=== PATIENT | male | born 1955 | race Hispanic/Latino ===

== ENCOUNTER 2017-03-23 13:47 | Inpatient (IN) | payer MEDICAID, SELFPAY ==
[2017-03-23 14:13] LABS: Bilirubin Negative (Negative); Blood, Urine Small (Negative); Glucose, Urine (Dipstick) 250 mg/dL (Negative); Ketone, Urine Negative (Negative); Nitrite Negative (Negative); Protein, Urine (Dipstick) > or equal to 300 mg/dL (Neg-Trace); Urobilinogen 0.2 mg/dL (0.2-1.0)
[2017-03-23 14:23] LABS: Bacteria/HPF None Seen HPF (None Seen); Hyaline Casts/LPF 0-3 HYALINE CAST LPF (0-3 Hyaline); Squamous Epithelial 0-3 HPF (0-3); WBC/HPF 0-3 HPF (0-3)
[2017-03-23 14:38] LABS: #Eosinphils 0.6 thou/uL (0.0-0.7); #Lymphocytes 1.3 thou/uL (1.20-3.40); #Monocytes 0.5 thou/uL (0.11-0.59); #Neutrophils 2.9 thou/uL (1.40-6.50); %Basophils 0.9 % (0.0-1.0); %Eosinophils 10.9 % (0.0-10.0); %Monocytes 8.6 % (0.0-10.0); Hematocrit 26.3 % (42.0-52.0); Mean Platelet Volume 8.1 fL (7.4-10.4); Red Blood Cell (RBC) Count 3.02 mill/uL (4.70-6.10); White Blood Cell (WBC) Count 5.2 thou/uL (4.8-10.8)
[2017-03-23 14:56] LABS: Lactic Acid - Sepsis 1.2 mmol/L (0.5-2.2)
[2017-03-23 15:00] LABS: ALT (SGPT) 10 U/L (8-55); AST (SGOT) 14 U/L (5-34); Alkaline Phosphatase 66 U/L (40-150); Anion Gap 13 mmol/L (10-20); BUN (Urea Nitrogen) 50 mg/dL (8.4-25.7); Bilirubin, Total 0.4 mg/dL (0.2-1.2); CK (CPK) 47 U/L (30-200); Calc. Creatinine Clearance 0 mL/min (70-130); Carbon Dioxide 19 mmol/L (22-29); Chloride 109 mmol/L (98-107); Estimated GFR-MDRD 8; Globulin 3.2 g/dL (2.4-3.5); Magnesium 2.2 mg/dL (1.6-2.6); Protein, Total 6.9 g/dL (6.0-8.3)
[2017-03-23 15:04] LABS: Troponin I 0.013 ng/mL (< 0.028)
[2017-03-23] MEDS ORDERED: Acetaminophen 650 MG Suppository PR PRN (19:33)
[2017-03-23] MEDS ORDERED: Acetaminophen 325 MG TAB PO PRN (19:33)
[2017-03-23] MEDS ORDERED: Dextrose 50% Abboject 50 ML SYRINGE SLOW IVP PRN (19:35)
[2017-03-23] MEDS ORDERED: HumaLOG 300 UNITS/3 ML VIAL SC PRN (19:35)
[2017-03-23] MEDS ORDERED: Dextrose 5% in Water 1,000 ML IV PRN (19:35)
[2017-03-23] MEDS ORDERED: Nitroglycerin 0.4 MG TAB (25 Tab Bottle) ONE (20:10)
--- NOTE | 2017-03-23 20:14 | HP ---
PRIMARY CARE PROVIDER: Paula. CHIEF COMPLAINT: Abnormal blood work. HISTORY OF PRESENT ILLNESS: Mr. Lyn is a pleasant 61-year-old gentleman who was seen at [facility] on 03/23/2017. He denies having any chest pain or shortness of breath. He denies any fevers or chills. He reports that he is in the emergency room because of abnormal labs. He states that he needs dialysis. He has no complaints at this time. REVIEW OF SYSTEMS: The following complete review of systems was negative, unless otherwise mentioned in the HPI or below: Constitutional: Weight loss or gain, sense of well-being, ability to conduct usual activities, exerc ise tolerance. Skin/Breast: Rash, itching, changes in hair growth or loss, nail changes, breast lum ps, tenderness, swelling, nipple discharge. Eyes: Vision, double vision, tearing, blind spots, pain . ENT/Mouth: Headaches (location, time of onset, duration, precipitating factors), vertigo, lighthe adedness, injury. Vision, double vision, tearing, blind spots, pain, nose bleeding, colds, obstructio n, discharge, dental difficulties, gingival bleeding, dentures, neck stiffness, pain, tenderness, mas ses in thyroid or other areas. Cardiovascular: Precordial pain, substernal distress, palpitations, syncope, dyspnea on exertion, orthopnea, nocturnal paroxysmal dyspnea, edema, cyanosis, hypertension, heart murmurs, varicosities, phlebitis, claudication. Respiratory: Pain, shortness of breath, whee zing, stridor, cough, hemoptysis, fever or night sweats. Gastrointestinal: Poor appetite, dysphagia , indigestion, abdominal pain, heartburn, eructation, nausea, vomiting, hematemesis, jaundice, consti pation, or diarrhea, abnormal stools (ravi-colored, tarry, bloody, greasy, foul smelling), flatulence , hemorrhoids, recent changes in bowel habits. Genitourinary: Urgency, frequency, dysuria, nocturia , hematuria, polyuria, oliguria, unusual (or change in) color of urine, stones, hesitancy, change in size of stream, dribbling, acute retention or incontinence, libido, potency. Musculoskeletal: Pain, swelling, redness or heat of muscles or joints, limitation, of motion, muscular weakness, atrophy, c ramps. Neurologic/Psychiatric: Convulsions, paralyses, tremor, incoordination, parasthesias, diffic ulties with memory of speech, sensory or motor disturbances, or muscular coordination (ataxia, tremor ), emotional problems, anxiety, depression, previous psychiatric care, unusual perceptions, hallucina tions. Allergy/Immunologic: Skin rash, anemia, bleeding tendency, polydipsia, polyuria, intolerance to heat or cold. PAST MEDICAL HISTORY: Significant for diabetes mellitus type 2, dyslipidemia, hypertension, renal fa ilure. He had a dialysis catheter placed on 03/09/2017 during his last hospitalization. PAST SURGICAL HISTORY: Tunneled dialysis catheter placement. SOCIAL HISTORY: The patient reports occasional alcohol use. He denies any tobacco use or recreation al drug use. ALLERGIES: No known drug allergies. FAMILY HISTORY: No family history of end-stage renal disease. CURRENT MEDICATIONS: Carvedilol 12.5 mg 2 times a day, hydralazine 25 mg 4 times a day, lisinopril 5 mg daily, calcium carbonate 600 mg daily, ferrous sulfate 325 mg daily, Procardia-XL 30 mg daily, pr avastatin 20 mg daily, isosorbide mononitrate 30 mg daily, calcitriol 0.25 mcg daily, and allopurinol 100 mg daily. PHYSICAL EXAMINATION: GENERAL: Mr. Lyn is awake and alert, not in acute distress. VITAL SIGNS: Blood pressure is 111/62, pulse is 60, he is breathing at rate of 12 and saturating 100 % on room air. He is afebrile. EYES: No scleral icterus. No conjunctival pallor. ENT: Moist mucosal membranes. No oropharyngeal erythema or exudates. NECK: Supple, nontender, normal range of movement. Trachea is midline. RESPIRATORY: Accessory muscles of breathing are not active. Chest wall movements are symmetric bila terally. LUNGS: Clear to auscultation without wheeze, rhonchi or crepitations. CARDIOVASCULAR: S1 and S2 are heard, regular. LUNGS: Peripheral pulses palpable. No carotid bruit, no pericardial rub. ABDOMEN: Soft, nontender, bowel sounds heard, no hepatomegaly, no splenomegaly. NEUROLOGIC: Cranial nerves II-XII are intact. Deep tendon reflexes are 2+. MUSCULOSKELETAL: Power is 5/5 in all 4 extremities. Normal range of movement at all major extremity joints. SKIN: No rashes. He has a right chest wall dialysis catheter. PSYCHIATRIC: Normal mood, normal affect, patient is oriented to person, place and time. LYMPHATIC: No cervical lymphadenopathy. LABORATORY DATA: Mr. Pena's labs and investigations were reviewed. [facility] shows T-wave inversions in the anterior lateral leads. He is in normal sinus rhythm. He has a normal white count, normocytic anemia with a hemoglobin of 8.8, normal platelet count, normal sodium, normal potassium of 5.1, elevated creatinine of 6.73, normal troponin I and normal liver profile. B RE DYE HAND is elevated at 1981. ASSESSMENT AND PLAN: Mr. Lyn is a pleasant 61-year-old gentleman who was seen at [facility] on 03/23/2017. His problem list includes: 1. End-stage renal disease needing dialysis. 2. Mr. Lyn will be admitted to the hospital. Nephrology Service has been consulted for the same. He will undergo dialysis in the morning. 3. Diabetes mellitus type 2. We will start Accu-Cheks, insulin sliding scale, continue home medicat ions. 4. Hypertension: Monitor vital signs, titrate antihypertensives as needed. 5. Dyslipidemia: Continue statin. Many thanks for allowing me to participate in your patient's care. Please feel free to contact me wi th any questions or concerns. LEVEL OF RISK: Moderate. LEVEL OF COMPLEXITY: Moderate.
--- NOTE | 2017-03-23 21:29 | CON ---
NEPHROLOGY CONSULTATION NOTE DATE OF CONSULTATION: 03/23/2017 REASON FOR CONSULTATION: Hyperkalemia. HISTORY OF PRESENT ILLNESS: This is a very pleasant 61-year-old gentleman with a history of end-stag e renal disease who presented to the hospital with a potassium of 5.8 and increasing muscle cramps. The patient denies no headache, numbness, tingling or weakness. Denies any nausea, vomiting or chest pain. PAST MEDICAL HISTORY: Significant for end-stage renal disease, hypertension and anemia. SOCIAL HISTORY: No alcohol or drug use. FAMILY HISTORY: Negative for ESRD. ALLERGIES: Reviewed. HOME MEDICATIONS: Reviewed. REVIEW OF SYSTEMS: A 15-point review of systems was performed and negative except for the positives noted above. GENERAL: Weakness-. HEAD: Headache-. NECK: No swelling or lumps. NOSE: No epistaxis or discharge. EYES: No diplopia or pain. RESPIRATORY: Dyspnea-. CARDIOVASCULAR: Chest pain-. GASTROINTESTINAL: Nausea-. 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 MUSCULOSKELETAL: No joint pain. NEUROPSYCHIATRIC SYSTEMS: No suicidal ideation. No ideation. SKIN: Denies any rash or ulcer. CONSTITUTIONAL: No fever or chills. PHYSICAL EXAMINATION: GENERAL: Patient is awake and alert. VITAL SIGNS: Afebrile. Pulse 70, breathing at 16 and blood pressure 130/70. HEAD/NECK: Normocephalic. Atraumatic. EYES: EOMI. No deformity. EARS: Clear. No ulcers. NOSE: Intact. No lesions. MOUTH: Clear. No discharge. THROAT: Clear. No exudate. LUNGS: Clear. No crackles. CARDIAC: S1, S2. No rub. ABDOMEN: Benign. BS+. GENITALIA/RECTUM: Chandler absent. BACK/EXTREMITIES: Lower extremities have 2+ edema. Ulcer. NEUROLOGICAL: Alert and motor intact. SKIN: Rash- Bruise-. LYMPHATICS: Edema-. Ulcer-. LABORATORY DATA: Potassium 5.8. ASSESSMENT AND RECOMMENDATIONS: 1. Stage 6 chronic kidney disease. Plan hemodialysis. 2. Hyperkalemia. Repeat potassium was 5.1. We will plan dialysis in the morning. 3. Anemia, stable. 4. Medications based on glomerular filtration rate are appropriate. No urgent indication for dialys is tonight.
[2017-03-23] MEDS ORDERED: Epoetin (ESRD) 20,000 UNITS/ML IVP SCH (21:30)
[2017-03-24 01:01] VITALS: BMI 22.9
[2017-03-24] MEDS: Heparin 5,000 UNITS/ML VIAL SC SCH ×2 (01:17→09:30)
[2017-03-24 06:49] LABS: #Eosinphils 0.4 thou/uL (0.0-0.7); #Lymphocytes 0.9 thou/uL (1.20-3.40); #Monocytes 0.5 thou/uL (0.11-0.59); #Neutrophils 1.9 thou/uL (1.40-6.50); %Basophils 0.5 % (0.0-1.0); %Eosinophils 10.6 % (0.0-10.0); %Lymphocytes 24.9 % (21.0-51.0); %Monocytes 12.8 % (0.0-10.0); Hematocrit 25.9 % (42.0-52.0); Mean Platelet Volume 7.8 fL (7.4-10.4); Red Blood Cell (RBC) Count 3.05 mill/uL (4.70-6.10); White Blood Cell (WBC) Count 3.6 thou/uL (4.8-10.8)
[2017-03-24 06:56] LABS: Anion Gap 12 mmol/L (10-20); BUN (Urea Nitrogen) 16 mg/dL (8.4-25.7); Calc. Creatinine Clearance 23 mL/min (70-130); Calcium 8.2 mg/dL (7.8-10.44); Carbon Dioxide 28 mmol/L (22-29); Chloride 104 mmol/L (98-107); Estimated GFR-MDRD 19
[2017-03-24] MEDS ORDERED: FLU VACC QS2017-18 36 mo. & older 0.5 ML SYRINGE IM ONE (09:00)
[2017-03-24 11:45] VITALS: BP 159/77; TEMP 99.1
--- NOTE | 2017-03-24 14:21 | PRG ---
DATE OF SERVICE: 03/24/2017 SUBJECTIVE: This is a 61-year-old gentleman being seen for end-stage renal disease. The patient den ies any nausea, vomiting, or chest pain. PHYSICAL EXAMINATION: GENERAL: Patient is awake and alert. VITAL SIGNS: Afebrile, pulse 71, breathing 16, and blood pressure 131/69. HEAD/NECK: Normocephalic. Atraumatic. EYES: EOMI. No deformity. EARS: Clear. No ulcers. NOSE: Intact. No lesions. MOUTH: Clear. No discharge. THROAT: Clear. No exudate. LUNGS: Clear. No crackles. CARDIAC: S1, S2. No rub. ABDOMEN: Benign. BS+. GENITALIA/RECTUM: Chandler absent. BACK/EXTREMITIES: Edema 3+ Ulcer- NEUROLOGICAL: Alert and motor intact. SKIN: Rash- Bruise. LYMPHATICS: Edema- Ulcer. LABORATORY DATA: Hemoglobin 8.9. ASSESSMENT AND RECOMMENDATIONS: 1. Stage 6 chronic kidney disease, continue hemodialysis. 2. Hypertension, stable. 3. Anemia, stable. 4. Hyperkalemia, stable. I advised the patient to follow compliance with dialysis.
== END 2017-03-24 11:55 | disposition home or self-care (01) | DRG 640 ==
LOC: ERS 13:47 → 2NO 20:46
PROVIDERS: ADMIT Internal Medicine; ATTEND Internal Medicine
PROC: 5A1D70Z Performance of Urinary Filtration, Intermittent, Less than 6 Hours Per Day (ICD-10-PCS; principal; 2017-03-23)
DX: E87.5 Hyperkalemia (principal); N18.6 End stage renal disease; I12.0 Hypertensive chronic kidney disease with stage 5 chronic kidney disease or end stage renal disease; E78.5 Hyperlipidemia, unspecified; E11.9 Type 2 diabetes mellitus without complications; Z99.2 Dependence on renal dialysis
CPT/HCPCS: 36415; 36416; 80048; 80053; 81003; 81015; 82550; 82553; 83605; 83735; 83880; 84484; 85025; 87340; 90935; 93005; G0257; J1644; Q4081

== ENCOUNTER 2019-02-16 06:46 | Outpatient (CLI) | payer OTHER ==
[2019-02-16 14:24] LABS: #Eosinphils 0.3 thou/uL (0.0-0.7); #Lymphocytes 0.9 thou/uL (1.20-3.40); #Monocytes 0.4 thou/uL (0.11-0.59); #Neutrophils 2.9 thou/uL (1.40-6.50); %Basophils 0.1 % (0.0-1.0); %Eosinophils 6.6 % (0.0-10.0); %Lymphocytes 20.3 % (21.0-51.0); %Monocytes 8.9 % (0.0-10.0); %Neutrophils 64.2 % (42.0-75.0); Hemoglobin 12.3 g/dL (14.0-18.0); Mean Corpuscular HGB CONC 33.8 g/dL (32.0-36.0); Mean Corpuscular Hemoglobin 30.2 pg (27.0-31.0); Mean Corpuscular Volume 89.6 fL (78.0-98.0); Mean Platelet Volume 7.9 fL (7.4-10.4); Platelet Count 149 thou/uL (130-400); RBC Distribution Width 13.3 % (11.5-14.5); Red Blood Cell (RBC) Count 4.08 mill/uL (4.70-6.10); White Blood Cell (WBC) Count 4.5 thou/uL (4.8-10.8)
[2019-02-16 14:44] LABS: Anion Gap 14 mmol/L (10-20); BUN (Urea Nitrogen) 15 mg/dL (8.4-25.7); Calc. Creatinine Clearance 0 mL/min (70-130); Calcium 8.7 mg/dL (7.8-10.44); Carbon Dioxide 27 mmol/L (23-31); Chloride 103 mmol/L (98-107); Estimated GFR-MDRD 13; Glucose 156 mg/dL (80-115); Potassium 4.6 mmol/L (3.5-5.1); Sodium 139 mmol/L (136-145)
--- NOTE | 2019-02-19 16:18 | EKG ---
Test Reason : Blood Pressure : / mmHG Vent. Rate : 088 BPM Atrial Rate : 088 BPM P-R Int : 222 ms QRS Dur : 088 ms QT Int : 386 ms P-R-T Axes : 080 077 088 degrees QTc Int : 467 ms Sinus rhythm with 1st degree A-V block Otherwise normal ECG Confirmed by DR. Halley MURCIA ([id number]) on 02/19/2019 4:18:05 PM Referred By: AYUSH Confirmed By:DR. Halley MURCIA
== END 2019-02-16 06:47 | disposition home or self-care (01) ==
LOC: LABBT 06:46
PROVIDERS: ATTEND Specialist
DX: Z01.818 Encounter for other preprocedural examination (principal); N18.6 End stage renal disease
CPT/HCPCS: 80048; 85025; 93005; 93010

== ENCOUNTER 2019-04-13 09:25 | Day surgery (SDC) | payer BC ==
[~2019-04-13 09:25] MED LIST: Bupivacaine HCl 0.5%/Epinephrine 1:200,000/PF 30 ml Vial ONE; PROPOFOL 200 MG/20 ML VIAL ONE
[2019-04-13 11:12] LABS: #Eosinphils 0.4 thou/uL (0.0-0.7); #Lymphocytes 1.4 thou/uL (1.20-3.40); #Monocytes 0.6 thou/uL (0.11-0.59); #Neutrophils 3.9 thou/uL (1.40-6.50); %Basophils 0.6 % (0.0-1.0); %Eosinophils 5.9 % (0.0-10.0); %Monocytes 9.1 % (0.0-10.0); %Neutrophils 62.3 % (42.0-75.0); Hemoglobin 12.9 g/dL (14.0-18.0); Mean Corpuscular HGB CONC 33.3 g/dL (32.0-36.0); Mean Corpuscular Hemoglobin 30.2 pg (27.0-31.0); Mean Corpuscular Volume 90.6 fL (78.0-98.0); Mean Platelet Volume 8.6 fL (7.4-10.4); Platelet Count 156 thou/uL (130-400); RBC Distribution Width 13.2 % (11.5-14.5); Red Blood Cell (RBC) Count 4.27 mill/uL (4.70-6.10); White Blood Cell (WBC) Count 6.3 thou/uL (4.8-10.8)
[2019-04-13] MEDS ORDERED: Midazolam HCl 2 mg/2 ml Vial ONE (11:32)
[2019-04-13] MEDS ORDERED: Fentanyl 100 MCG/2 ML VIAL ONE (11:32)
[2019-04-13 11:34] LABS: Anion Gap 16 mmol/L (10-20); BUN (Urea Nitrogen) 24 mg/dL (8.4-25.7); Calc. Creatinine Clearance 0 mL/min (70-130); Calcium 8.7 mg/dL (7.8-10.44); Carbon Dioxide 24 mmol/L (23-31); Chloride 99 mmol/L (98-107); Estimated GFR-MDRD 9; Glucose 103 mg/dL (80-115); Potassium 4.3 mmol/L (3.5-5.1); Sodium 135 mmol/L (136-145)
[2019-04-13] MEDS ORDERED: Ioversol 68 % 50 ML VIAL ONE (11:43)
[2019-04-13] MEDS ORDERED: Heparin 5,000 UNITS/ML VIAL ONE (11:43)
[2019-04-13] MEDS ORDERED: Lidocaine 1% w/Epinephrine 1:100K 20 ML VIAL ONE (11:43)
[2019-04-13] MEDS ORDERED: Protamine Sulfate 50 MG/5 ML VIAL ONE (11:43)
[2019-04-13] MEDS ORDERED: Bupivacaine PF 0.5% 30 ML VIAL ONE (11:43)
[2019-04-13] MEDS ORDERED: Heparin 10,000 UNITS/ 10 ML VIAL ONE (15:44)
--- NOTE | 2019-04-13 16:28 | OP ---
DATE OF PROCEDURE: 04/13/2019 PREOPERATIVE DIAGNOSES: 1. End-stage renal disease. 2. Occluded cephalic vein. 3. Dialysis fistula malfunction. POSTOPERATIVE DIAGNOSES: 1. End-stage renal disease. 2. Occluded cephalic vein. 3. Dialysis fistula malfunction. Note, the patient had a fistula in 2017 and needed a basilic vein transposition fistula, but has not been compliant in followup. He now presents for transposition fistula. PROCEDURE PERFORMED: Left arm basilic vein transposition fistula. ANESTHESIA: Regional anesthesia, TIVA, local with 0.5% Marcaine 30 mL mixed with 1% Xylocaine with epinephrine 20 mL. DESCRIPTION OF PROCEDURE: The patient was taken to the operating room, where under intravenous sedation and regional block, left upper extremity was prepared with ChloraPrep and draped in routine fashion. Incision was made from the proximal volar forearm to the axilla, carried down to skin and subcutaneous tissue and the deep fascia, protecting the nerves, keeping them free of harm, unroofing the basilic vein, dissected free, dividing branch between 4-0 silk ties and clips. A subcutaneous tunnel created with a 12 mm head and the patient given 6000 units of heparin intravenously. After adequate circulation time, the basilic vein origin in the proximal volar forearm identified just beyond the perforating branch antecubital vein. Arterial inflow from the proximal radial artery. Retrograde antecubital vein dissected free and available. A vascular clamp placed across the origin of the basilic vein and it was transected, connected to the tunneler, marking it for proper orientation, preventing torsion, brought in the tunnel, flushed with heparinized saline solution, noting excellent orientation and end vein to end vein anastomosis created after spatulating both veins and creating the anastomosis. We will continue suture of 6-0 Prolene. Good hemostasis noted. The patient was given 50 mg of protamine intravenously after vascular inflow released. Good flow was noted. Good hemostasis obtained. Surgicel placed in the harvest bed. Subcutaneous tissue was approximated with 3-0 Monocryl and skin with esther. Sterile dressing applied. Job ID: [id number]
--- NOTE | 2019-04-17 12:07 | HP ---
HISTORY OF PRESENT ILLNESS: Markell Lyn is a 63-year-old male patient who I established dialysis access with a hemodialysis catheter in the left arm fistula. Unknown at that time that he would need a basilic vein transposition fistula. The patient never followed up with me. Dialysis center sent him to the [facility] due to prolonged bleeding and revealed this was a basilic vein fistula as noted. The patient now will be scheduled for a basilic vein transposition fistula after having undergone March 2017, left arm primary fistula inflow, proximal radial artery outflow, perforating branch antecubital vein to basilic vein without communication of the cephalic vein. Retrograde antecubital vein preserved. The patient dialyzes Wednesday, Wednesday, and Wednesday at [facility] [place]. MEDICATIONS: Allopurinol, aspirin, calcitriol, PhosLo, Tums, carvedilol, cholecalciferol, ferrous sulfate, Lasix and/or hydralazine, and pravastatin. PAST MEDICAL HISTORY: End-stage renal disease, on maintenance dialysis; type 1 diabetes mellitus; diabetic neuropathy, hyperparathyroidism. ALLERGIES: NONE. TOBACCO: None. ALCOHOL: None. PAST SURGICAL HISTORY: As noted above, left arm fistula catheter. ASSESSMENT/PLAN: 1. End-stage renal disease with malfunction of the fistula. He will need a planned basilic vein transposition fistula. He understands risks and benefits, and consents. We will plan this as an outpatient under general and regional per Anesthesia's discretion on preoperative visit. IV access blood draws through his dialysis catheter. CBC, basic metabolic panel preoperatively. 2. End-stage renal disease. 3. Umbilical hernia, asymptomatic. Job ID: [id number]
== END 2019-04-13 16:20 | disposition home or self-care (01) ==
LOC: SDC 09:25
PROVIDERS: ATTEND Specialist
PROC: 05SC0ZZ Reposition Left Basilic Vein, Open Approach (ICD-10-PCS; principal; 2019-04-13)
DX: N18.6 End stage renal disease (principal); T82.510A Breakdown (mechanical) of surgically created arteriovenous fistula, initial encounter; Z79.82 Long term (current) use of aspirin; Z79.899 Other long term (current) drug therapy
CPT/HCPCS: 80048; 85025; J0670; J0690; J1644; J2250; J2704; J2720; J3010; Q9967; S0020

== ENCOUNTER 2022-01-26 15:50 | Observation (INO) | payer BC ==
[2022-01-26 17:00] LABS: #Eosinphils 0.2 thou/uL (0.0-0.7); #Lymphocytes 0.8 thou/uL (1.20-3.40); #Monocytes 0.5 thou/uL (0.11-0.59); #Neutrophils 2.9 thou/uL (1.40-6.50); %Lymphocytes 18.2 % (21.0-51.0); %Monocytes 10.5 % (0.0-10.0); %Neutrophils 66.3 % (42.0-75.0); Hemoglobin 13.2 g/dL (14.0-18.0); Mean Corpuscular HGB CONC 32.5 g/dL (32.0-36.0); Mean Corpuscular Hemoglobin 30.5 pg (27.0-31.0); Mean Corpuscular Volume 93.7 fL (78.0-98.0); Platelet Count 104 thou/uL (130-400); RBC Distribution Width 14.9 % (11.5-14.5); Red Blood Cell (RBC) Count 4.32 mill/uL (4.70-6.10); White Blood Cell (WBC) Count 4.4 thou/uL (4.8-10.8)
[2022-01-26 17:22] LABS: ALT (SGPT) 11 U/L (8-55); AST (SGOT) 16 U/L (5-34); Alkaline Phosphatase 106 U/L (40-110); Anion Gap 16 mmol/L (10-20); BUN (Urea Nitrogen) 16 mg/dL (8.4-25.7); Bilirubin, Total 0.7 mg/dL (0.2-1.2); Calc. Creatinine Clearance 0 mL/min (70-130); Calcium 8.1 mg/dL (7.8-10.44); Carbon Dioxide 27 mmol/L (23-31); Chloride 96 mmol/L (98-107); Estimated GFR 10; Globulin 3.7 g/dL (2.4-3.5); Glucose 101 mg/dL (80-115); Potassium 5.1 mmol/L (3.5-5.1); Protein, Total 7.7 g/dL (5.8-8.1); Sodium 134 mmol/L (136-145)
[2022-01-26 17:28] LABS: PTT 42.5 sec (22.9-36.1); Prothrombin Time 13.6 sec (12.0-14.7)
[2022-01-26] MEDS ORDERED: Ondansetron PF 4 MG/2 ML Vial IVP PRN (19:46)
[2022-01-26] MEDS ORDERED: Ondansetron ODT 4 MG TAB PO PRN (19:46)
[2022-01-26 22:11] VITALS: BMI 25.6
[2022-01-27 06:32] LABS: #Eosinphils 0.2 thou/uL (0.0-0.7); #Lymphocytes 0.9 thou/uL (1.20-3.40); #Monocytes 0.5 thou/uL (0.11-0.59); %Basophils 0.7 % (0.0-1.0); %Eosinophils 4.5 % (0.0-10.0); %Lymphocytes 18.9 % (21.0-51.0); %Monocytes 10.4 % (0.0-10.0); %Neutrophils 65.5 % (42.0-75.0); Hemoglobin 12.4 g/dL (14.0-18.0); Mean Corpuscular HGB CONC 31.3 g/dL (32.0-36.0); Mean Corpuscular Volume 95.7 fl (78.0-98.0); Mean Platelet Volume 8.8 fL (7.4-10.4); Platelet Count 101 thou/uL (130-400); RBC Distribution Width 14.8 % (11.5-14.5); Red Blood Cell (RBC) Count 4.14 mill/uL (4.70-6.10); White Blood Cell (WBC) Count 4.6 thou/uL (4.8-10.8)
[2022-01-27 06:54] LABS: Anion Gap 16 mmol/L (10-20); BUN (Urea Nitrogen) 23 mg/dL (8.4-25.7); Calc. Creatinine Clearance 9 mL/min (70-130); Calcium 7.9 mg/dL (7.8-10.44); Carbon Dioxide 27 mmol/L (23-31); Chloride 97 mmol/L (98-107); Estimated GFR 8; Glucose 89 mg/dL (80-115); Potassium 6.3 mmol/L (3.5-5.1); Sodium 134 mmol/L (136-145)
[2022-01-27] MEDS ORDERED: LOKELMA 10 GM PACKET PO SCH (07:45)
[2022-01-27] MEDS ORDERED: Heparin 10,000 UNITS/ 10 ML VIAL ONE (08:31)
[2022-01-27] MEDS ORDERED: FLU VACC QS2022-23(6MOS UP)/PF 60 MCG/0.5 ML SYRINGE IM ONE (09:00)
[2022-01-27] MEDS ORDERED: hydrALAZINE 20 MG/ML VIAL SLOW IVP PRN (10:37)
[2022-01-27] MEDS ORDERED: Aspirin 81 mg Enteric Coated Tablet PO SCH (10:45)
[2022-01-28 07:25] LABS: Anion Gap 17 mmol/L (10-20); BUN (Urea Nitrogen) 25 mg/dL (8.4-25.7); Calc. Creatinine Clearance 9 mL/min (70-130); Carbon Dioxide 26 mmol/L (23-31); Chloride 96 mmol/L (98-107); Estimated GFR 8; Glucose 116 mg/dL (80-115); Potassium 4.9 mmol/L (3.5-5.1); Sodium 134 mmol/L (136-145)
[2022-01-28] MEDS: Aspirin 81 mg Enteric Coated Tablet PO SCH (08:20)
[2022-01-28 08:31] LABS: #Eosinphils 0.2 thou/uL (0.0-0.7); #Lymphocytes 0.9 thou/uL (1.20-3.40); #Monocytes 0.5 thou/uL (0.11-0.59); %Basophils 0.2 % (0.0-1.0); %Eosinophils 4.8 % (0.0-10.0); %Lymphocytes 19.4 % (21.0-51.0); %Monocytes 10.1 % (0.0-10.0); %Neutrophils 65.5 % (42.0-75.0); Hemoglobin 11.7 g/dL (14.0-18.0); Mean Corpuscular HGB CONC 32.3 g/dL (32.0-36.0); Mean Corpuscular Volume 95.9 fl (78.0-98.0); Mean Platelet Volume 9.1 fL (7.4-10.4); Platelet Count 85 thou/uL (130-400); RBC Distribution Width 14.8 % (11.5-14.5); Red Blood Cell (RBC) Count 3.78 mill/uL (4.70-6.10); White Blood Cell (WBC) Count 4.5 thou/uL (4.8-10.8)
[2022-01-28 08:32] LABS: Anisocytosis SLIGHT = 6-15 cells (100X) (0-5/hpf); Elliptocytes SLIGHT = 2-5 cells (100X) (0-1/hpf); MDiff Complete? YES; Ovalocytes SLIGHT = 2-5 cells (100X) (0-1/hpf); Platelet Morphology Comment Appears Decreased
[2022-01-28] MEDS ORDERED: LOKELMA 5 GM PACKET PO SCH (09:00)
[2022-01-28] MEDS: Acetaminophen 325 MG TAB PO PRN (19:24)
[2022-01-28] MEDS: GUAIFENESIN SF SOLN 200 MG/10 ML UDCUP PO PRN (19:24)
[2022-01-29 06:38] LABS: #Eosinphils 0.2 thou/uL (0.0-0.7); #Lymphocytes 0.8 thou/uL (1.20-3.40); #Monocytes 0.4 thou/uL (0.11-0.59); #Neutrophils 3.5 thou/uL (1.40-6.50); %Basophils 0.5 % (0.0-1.0); %Eosinophils 4.5 % (0.0-10.0); %Lymphocytes 15.3 % (21.0-51.0); %Monocytes 8.6 % (0.0-10.0); %Neutrophils 71.1 % (42.0-75.0); Hemoglobin 11.4 g/dL (14.0-18.0); Mean Corpuscular Hemoglobin 30.4 pg (27.0-31.0); Mean Corpuscular Volume 95.1 fl (78.0-98.0); Platelet Count 88 thou/uL (130-400); RBC Distribution Width 14.9 % (11.5-14.5); Red Blood Cell (RBC) Count 3.75 mill/uL (4.70-6.10); White Blood Cell (WBC) Count 4.9 thou/uL (4.8-10.8)
[2022-01-29 06:58] LABS: Anion Gap 18 mmol/L (10-20); BUN (Urea Nitrogen) 43 mg/dL (8.4-25.7); Calc. Creatinine Clearance 7 mL/min (70-130); Calcium 7.3 mg/dL (7.8-10.44); Carbon Dioxide 25 mmol/L (23-31); Chloride 95 mmol/L (98-107); Estimated GFR 5; Glucose 108 mg/dL (80-115); Potassium 4.6 mmol/L (3.5-5.1); Sodium 133 mmol/L (136-145)
[2022-01-29] MEDS: Aspirin 81 mg Enteric Coated Tablet PO SCH (07:58)
[2022-01-29 08:58] LABS: HBSAg Index 0.28 S/CO (0-0.99); Hep B Core Total Ab Non-Reactive (NonReactive); Hep B Core Total Index 0.08 S/CO (0-0.79); Hep B Surf Ag Non-Reactive S/CO (NonReactive); Hep C IgG Ab Non-Reactive (NonReactive); Hep C Index 0.14 S/CO (0-0.79)
[2022-01-29] MEDS ORDERED: Heparin 10,000 UNITS/ 10 ML VIAL ONE (09:04)
[2022-01-29 09:47] LABS: HBSAB Concentration 3254.95 mIU/mL; Hep B Surf AB Reactive (NonReactive)
[2022-01-29] MEDS ORDERED: CEFAZOLIN 1 GM in Sodium Chloride 0.9% 100 ML IVPB SCH (15:45)
[2022-01-29] MEDS ORDERED: Insulin Regular 300 UNITS/3 ML VIAL SC PRN ×2 (17:31)
[2022-01-29] MEDS ORDERED: Dextrose 5% in Water 1,000 ML IV PRN (17:31)
[2022-01-29] MEDS ORDERED: Dextrose 50% Abboject 50 ML SYRINGE SLOW IVP PRN (17:31)
[2022-01-29] MEDS: Acetaminophen 325 MG TAB PO PRN (20:16)
[2022-01-29] MEDS: GUAIFENESIN SF SOLN 200 MG/10 ML UDCUP PO PRN (20:16)
[2022-01-30 07:01] LABS: #Eosinphils 0.2 thou/uL (0.0-0.7); #Lymphocytes 0.7 thou/uL (1.20-3.40); #Monocytes 0.3 thou/uL (0.11-0.59); #Neutrophils 2.5 thou/uL (1.40-6.50); %Basophils 0.4 % (0.0-1.0); %Eosinophils 5.3 % (0.0-10.0); %Lymphocytes 17.3 % (21.0-51.0); %Monocytes 9.2 % (0.0-10.0); %Neutrophils 67.9 % (42.0-75.0); Hemoglobin 10.6 g/dL (14.0-18.0); Mean Corpuscular HGB CONC 31.2 g/dL (32.0-36.0); Mean Corpuscular Hemoglobin 29.3 pg (27.0-31.0); Mean Platelet Volume 9.5 fL (7.4-10.4); Platelet Count 83 thou/uL (130-400); RBC Distribution Width 15.4 % (11.5-14.5); Red Blood Cell (RBC) Count 3.61 mill/uL (4.70-6.10); White Blood Cell (WBC) Count 3.7 thou/uL (4.8-10.8)
[2022-01-30 07:09] LABS: Anion Gap 14 mmol/L (10-20); BUN (Urea Nitrogen) 35 mg/dL (8.4-25.7); Calc. Creatinine Clearance 8 mL/min (70-130); Calcium 7.2 mg/dL (7.8-10.44); Carbon Dioxide 25 mmol/L (23-31); Chloride 97 mmol/L (98-107); Estimated GFR 7; Glucose 105 mg/dL (80-115); Potassium 4.6 mmol/L (3.5-5.1); Sodium 131 mmol/L (136-145)
[2022-01-30] MEDS: Aspirin 81 mg Enteric Coated Tablet PO SCH (07:20)
[2022-01-30] MEDS ORDERED: fentaNYL Citrate/PF 100 MCG/2 ML SYRINGE ONE (16:32)
[2022-01-30] MEDS ORDERED: Sodium Chloride 0.9% 100 ML ONE (16:43)
[2022-01-30] MEDS ORDERED: CEFAZOLIN 1 GM VIAL ONE (16:43)
[2022-01-30] MEDS ORDERED: SUGAMMADEX SODIUM 200 MG/2 ML VIAL ONE (16:47)
[2022-01-30] MEDS ORDERED: Glycopyrrolate 0.2 MG/ML 5 ML SYRINGE ONE (16:54)
[2022-01-30] MEDS ORDERED: NEOSTIGMINE 3 MG/3 ML SYR 3 MG/3 ML SYRINGE ONE (16:54)
[2022-01-30] MEDS ORDERED: PROPOFOL 200 MG/20 ML VIAL ONE (16:54)
[2022-01-30] MEDS ORDERED: Rocuronium Bromide 10 MG/ML (10ML VIAL) ONE (16:54)
[2022-01-30] MEDS ORDERED: PHENYLEPHRINE-NS 100 MCG/ML 10 ML SYRINGE ONE (16:54)
[2022-01-30] MEDS ORDERED: Ondansetron PF 4 MG/2 ML Vial ONE (16:54)
[2022-01-30] MEDS ORDERED: Heparin 10,000 UNITS/ 10 ML VIAL ONE (17:01)
[2022-01-30] MEDS ORDERED: Protamine Sulfate 50 MG/5 ML VIAL ONE (17:45)
[2022-01-30] MEDS ORDERED: Promethazine HCl 25 MG/ML VIAL IM PRN (18:22)
[2022-01-30] MEDS ORDERED: Ondansetron HCl/PF 4 MG/2 ML Vial IVP PRN (18:22)
[2022-01-30] MEDS ORDERED: Morphine Sulfate 2 MG/ML SYRINGE SLOW IVP PRN (18:22)
[2022-01-30] MEDS ORDERED: Promethazine HCl 25 MG/ML VIAL IVPB PRN (18:22)
[2022-01-31] MEDS: Acetaminophen 325 MG TAB PO PRN (02:00)
[2022-01-31] MEDS: GUAIFENESIN SF SOLN 200 MG/10 ML UDCUP PO PRN ×2 (02:13→08:13)
[2022-01-31 06:23] LABS: #Eosinphils 0.1 thou/uL (0.0-0.7); #Lymphocytes 0.5 thou/uL (1.20-3.40); #Monocytes 0.4 thou/uL (0.11-0.59); #Neutrophils 3.8 thou/uL (1.40-6.50); %Eosinophils 2.5 % (0.0-10.0); %Lymphocytes 10.1 % (21.0-51.0); %Monocytes 7.6 % (0.0-10.0); %Neutrophils 79.7 % (42.0-75.0); Hemoglobin 11.4 g/dL (14.0-18.0); Mean Corpuscular HGB CONC 33.4 g/dL (32.0-36.0); Mean Corpuscular Hemoglobin 31.8 pg (27.0-31.0); Mean Corpuscular Volume 95.1 fl (78.0-98.0); Mean Platelet Volume 9.3 fL (7.4-10.4); Platelet Count 93 thou/uL (130-400); RBC Distribution Width 15.4 % (11.5-14.5); Red Blood Cell (RBC) Count 3.58 mill/uL (4.70-6.10); White Blood Cell (WBC) Count 4.7 thou/uL (4.8-10.8)
[2022-01-31 06:28] LABS: Anion Gap 22 mmol/L (10-20); BUN (Urea Nitrogen) 48 mg/dL (8.4-25.7); Calc. Creatinine Clearance 7 mL/min (70-130); Calcium 7.1 mg/dL (7.8-10.44); Carbon Dioxide 20 mmol/L (23-31); Chloride 95 mmol/L (98-107); Estimated GFR 5; Glucose 84 mg/dL (80-115); Potassium 5.6 mmol/L (3.5-5.1); Sodium 131 mmol/L (136-145)
[2022-01-31] MEDS: Aspirin 81 mg Enteric Coated Tablet PO SCH (08:05)
[2022-01-31] MEDS ORDERED: Heparin 10,000 UNITS/ 10 ML VIAL ONE (09:19)
[2022-01-31 12:41] VITALS: TEMP 98.3
[2022-01-31 16:38] VITALS: BP 101/70
== END 2022-01-31 16:53 | disposition home or self-care (01) ==
LOC: ERS 15:50 → SUATTDRO 15:50 → T4-A 19:31
PROVIDERS: ADMIT Internal Medicine; ATTEND Internal Medicine
PROC: 0JPW3XZ Removal of Tunneled Vascular Access Device from Lower Extremity Subcutaneous Tissue and Fascia, Percutaneous Approach (ICD-10-PCS; principal; 2022-01-30)
PROC: 0JH63XZ Insertion of Tunneled Vascular Access Device into Chest Subcutaneous Tissue and Fascia, Percutaneous Approach (ICD-10-PCS; 2022-01-30)
PROC: 02PY33Z Removal of Infusion Device from Great Vessel, Percutaneous Approach (ICD-10-PCS; 2022-01-30)
PROC: 02HV33Z Insertion of Infusion Device into Superior Vena Cava, Percutaneous Approach (ICD-10-PCS; 2022-01-30)
PROC: 031B0ZF Bypass Right Radial Artery to Lower Arm Vein, Open Approach (ICD-10-PCS; 2022-01-30)
DX: I13.2 Hypertensive heart and chronic kidney disease with heart failure and with stage 5 chronic kidney disease, or end stage renal disease (principal); E11.22 Type 2 diabetes mellitus with diabetic chronic kidney disease; N18.6 End stage renal disease; I50.22 Chronic systolic (congestive) heart failure; D63.1 Anemia in chronic kidney disease; T82.868A Thrombosis due to vascular prosthetic devices, implants and grafts, initial encounter; T82.41XA Breakdown (mechanical) of vascular dialysis catheter, initial encounter; E11.51 Type 2 diabetes mellitus with diabetic peripheral angiopathy without gangrene; I70.208 Unspecified atherosclerosis of native arteries of extremities, other extremity; E78.00 Pure hypercholesterolemia, unspecified; E87.5 Hyperkalemia; D69.6 Thrombocytopenia, unspecified; I25.10 Atherosclerotic heart disease of native coronary artery without angina pectoris; Z91.199 Patient's noncompliance with other medical treatment and regimen due to unspecified reason; Z79.899 Other long term (current) drug therapy; Z95.5 Presence of coronary angioplasty implant and graft; Z99.2 Dependence on renal dialysis; Z20.822 Contact with and (suspected) exposure to COVID-19; Y81.3 Surgical instruments, materials and general- and plastic-surgery devices (including sutures) associated with adverse incidents
CPT/HCPCS: 36415; 36416; 36556; 71045; 80048; 80053; 85025; 85610; 85730; 86704; 87340; 90935; 93970; C1752; C1776; G0257; G0378; J0690; J1644; J2405; J2704; J2720; J3490; U0003; U0005